=== PATIENT | female | born 1975 | race Caucasian/White ===

== ENCOUNTER → 2018-11-11 | Outpatient (CLI) | payer SELFPAY ==
[~2018-11-11] MED LIST: AMOX500C PO; BUPR100T3; BUPR150T5; CITA10TA5; CLON0.2T PO; MINI1CAP PO; MUPI2OI EXT; NAPR-50 PO; PRAZ1CAP; TOPA1TAB PO; TOPI50TA9; ZOFR4TAB14 PO
== END ==
LOC: M OUTALCOH 08:48
PROVIDERS: ATTEND Psychiatry & Neurology Psychiatry
DX: F14.20 Cocaine dependence, uncomplicated (principal)

== ENCOUNTER 2019-07-28 07:37 | Emergency (ER) | payer MEDICAID, OTHER ==
[~2019-07-28] VITALS: Ht 167.6 cm; Wt 66.3 kg
[2019-07-28 07:37] VITALS: BP 146/69
[~2019-07-28 07:37] MED LIST changes: -BUPR150T5; +BUPR150T5 PO; -NAPR-50 PO; +NAPR-837 PO; -PRAZ1CAP; +PRAZ1CAP PO
[2019-07-28] MEDS ORDERED: ATOM40CA PO (07:49)
[2019-07-28] MEDS ORDERED: LAMI25TA PO ×2 (07:49)
[2019-07-28] MEDS ORDERED: LEVO0.5S15 OD (08:45)
== END 2019-07-28 08:50 | disposition home or self-care (01) ==
LOC: M ED 07:37
DX: H10.9 Unspecified conjunctivitis (principal); Z97.0 Presence of artificial eye; F43.10 Post-traumatic stress disorder, unspecified; F17.200 Nicotine dependence, unspecified, uncomplicated; Z87.898 Personal history of other specified conditions; Z90.49 Acquired absence of other specified parts of digestive tract; Z91.010 Allergy to peanuts; Z88.8 Allergy status to other drugs, medicaments and biological substances

== ENCOUNTER 2019-08-05 13:47 | Emergency (ER) | payer MEDICAID, OTHER ==
[~2019-08-05] VITALS: Ht 167.6 cm; Wt 68.0 kg
[~2019-08-05 13:47] MED LIST changes: +ATOM40CA PO; +LAMI25TA PO; +LEVO0.5S15 OD
[2019-08-05] MEDS ORDERED: LAMI25TA PO (14:42)
[2019-08-05 15:54] LABS: BASO % 0.2 % (0.0-1.0); EOS # 0.3 10^3/uL (0.0-0.5); EOS % 4.9 % (0.0-3.0); HEMATOCRIT 40.5 % (36.0-47.0); HEMOGLOBIN 13.6 g/dl (12.0-15.5); LYMPH # 0.8 10^3/uL (1.5-5.0); MEAN CORPUSCULAR HEMOGLOBIN 30.8 pg (27.0-33.0); MEAN CORPUSCULAR HGB CONC 33.6 g/dl (32.0-36.5); MEAN CORPUSCULAR VOLUME 91.6 fl (80.0-96.0); MONO # 0.4 10^3/uL (0.0-0.8); MONO % 7.1 % (0.0-5.0); NEUTROPHILS % 73.3 % (36.0-66.0); PLATELET COUNT, AUTOMATED 253 10^3/uL (150-450); RED BLOOD COUNT 4.42 10^6/uL (4.00-5.40); WHITE BLOOD COUNT 5.5 10^3/uL (4.0-10.0)
[2019-08-05 16:17] LABS: BLOOD UREA NITROGEN 12 MG/DL (7-18); CALCIUM LEVEL 8.9 MG/DL (8.5-10.1); CARBON DIOXIDE LEVEL 32 MEQ/L (21-32); CHLORIDE LEVEL 106 MEQ/L (98-107); CREATININE FOR GFR 0.82 MG/DL (0.55-1.30); GLOMERULAR FILTRATION RATE > 60.0 (>58); GLUCOSE, FASTING 91 MG/DL (70-100); RHEUMATOID FACTOR QUANT < 10.0 IU/ML (<15.0); SODIUM LEVEL 142 MEQ/L (136-145)
[2019-08-05 16:28] LABS: ERYTHROCYTE SEDIMENTATION RATE 54 mm/hr (0-20)
[2019-08-05] MEDS ORDERED: INDO50CA91 PO (16:56)
[2019-08-05] MEDS ORDERED: FLAG500T PO (16:56)
[2019-08-05 17:07] VITALS: BP 130/69
[2019-08-05 17:38] LABS: CHLAMYDIA DNA AMPLIFICATION NEGATIVE (NEGATIVE); GC DNA AMPLIFICATION NEGATIVE (NEGATIVE)
[2019-08-09 00:06] LABS: ANTI DOUBLE STRAND-DNA AB 1 IU/mL (0-9); ANTINUCLEAR ANTIBODIES DIRECT Positive (Negative); RNP ANTIBODIES 3.2 AI (0.0-0.9); SJOGREN'S ANTI SS-A <0.2 AI (0.0-0.9); SJOGREN'S ANTI SS-B <0.2 AI (0.0-0.9); SMITH ANTIBODIES >8.0 AI (0.0-0.9)
== END 2019-08-05 17:10 | disposition home or self-care (01) ==
LOC: M ED 13:47
DX: R21 Rash and other nonspecific skin eruption (principal); N76.0 Acute vaginitis; M25.50 Pain in unspecified joint; F17.200 Nicotine dependence, unspecified, uncomplicated; Z91.010 Allergy to peanuts; Z88.5 Allergy status to narcotic agent

== ENCOUNTER 2021-04-04 18:15 | Emergency (ER) | payer MEDICAID ==
[~2021-04-04] VITALS: Ht 165.1 cm; Wt 72.7 kg
[~2021-04-04 18:15] MED LIST changes: -ATOM40CA PO; +ATOM40CA16 PO; +FLAG500T PO; +INDO50CA91 PO; -LEVO0.5S15 OD; +LEVO0.5S16 OD
[2021-04-04 18:16] VITALS: BP 119/56
== END 2021-04-04 21:44 | disposition left against medical advice (07) ==
LOC: M ED 18:15
DX: Z53.21 Procedure and treatment not carried out due to patient leaving prior to being seen by health care provider (principal)

== ENCOUNTER 2021-08-09 12:06 | Emergency (ER) | payer MEDICAID ==
[~2021-08-09] VITALS: Ht 167.6 cm; Wt 68.9 kg
[2021-08-09 12:15] VITALS: BP 119/71
--- OUTSIDE RECORDS SUMMARY | 2021-08-09 12:18 | CCD ---
Author Author [facility] Organization [facility] Address Unknown Phone Unavailable Care Team Providers Care Nurse Staff Industrial Name Role Phone Paulina Banerjee MD Unavailable Unavailable Paulina Banerjee MD Unavailable Unavailable Paulina Banerjee MD Unavailable Unavailable Paulina Banerjee MD Unavailable Unavailable Paulina Banerjee MD Unavailable Unavailable Paulina Banerjee MD Unavailable Unavailable Paulina Banerjee MD Unavailable Unavailable Paulina Banerjee MD Unavailable Unavailable Paulina Banerjee MD Unavailable Unavailable Paulina Banerjee MD Unavailable Unavailable Paulina Banerjee MD Unavailable Unavailable Paulina Banerjee MD Unavailable Unavailable Paulina Banerjee MD Unavailable Unavailable Paulnia Banerjee MD Unavailable Unavailable Paulina Banerjee MD Unavailable Unavailable Paulina Banerjee MD Unavailable Unavailable Paulina Banerjee MD Unavailable Unavailable Paulina Banerjee MD Unavailable Unavailable Paulina Banerjee MD Unavailable Unavailable Paulina Banerjee MD Unavailable Unavailable Paulina Banerjee MD Unavailable Unavailable Paulina Banerjee MD Unavailable Unavailable Paulina Banerjee MD Unavailable Unavailable Paulina Banerjee MD Unavailable Unavailable Paulina Banerjee MD Unavailable Unavailable Paulina Banerjee MD Unavailable Unavailable Paulina Banerjee MD Unavailable Unavailable Paulina Banerjee MD Unavailable Unavailable Paulina Banerjee MD Unavailable Unavailable Paulina Banerjee MD Unavailable Unavailable Paulina Banerjee MD Unavailable Unavailable Paulina Banerjee MD Unavailable Unavailable Paulina Banerjee MD Unavailable Unavailable Paulina Banerjee MD Unavailable Unavailable Paulina Banerjee MD Unavailable Unavailable Paulina Banerjee MD Unavailable Unavailable Paulina Banerjee MD Unavailable Unavailable Paulina Banerjee MD Unavailable Unavailable Paulina Banerjee MD Unavailable Unavailable Paulina Banerjee MD Unavailable Unavailable Paulina Banerjee MD Unavailable Unavailable Paulina Banerjee MD Unavailable Unavailable Paulina Banerjee MD Unavailable Unavailable Paulina Banerjee MD Unavailable Unavailable Paulina Banerjee MD Unavailable Unavailable Paulina Banerjee MD Unavailable Unavailable Paulina Banerjee MD Unavailable Unavailable Paulina Banerjee MD Unavailable Unavailable Paulina Banerjee MD Unavailable Unavailable Paulina Banerjee MD Unavailable Unavailable Paulina Banerjee MD Unavailable Unavailable Paulina Banerjee MD Unavailable Unavailable Paulina Banerjee MD Unavailable Unavailable Paulina Banerjee MD Unavailable Unavailable Paulina Banerjee MD Unavailable Unavailable Paulina Banerjee MD Unavailable Unavailable Paulina Banerjee MD Unavailable Unavailable Paulina Banerjee MD Unavailable Unavailable Paulina Banerjee MD Unavailable Unavailable Paulina Banerjee MD Unavailable Unavailable Paulina Banerjee MD Unavailable Unavailable Paulina Banerjee MD Unavailable Unavailable Paulina Banerjee MD Unavailable Unavailable Paulina Banerjee MD Unavailable Unavailable Paulina Banerjee MD Unavailable Unavailable Paulina Banerjee MD Unavailable Unavailable Paulina Banerjee MD Unavailable Unavailable Paulina Banerjee MD Unavailable Unavailable Paulina Banerjee MD Unavailable Unavailable Paulina Banerjee MD Unavailable Unavailable Paulina Banerjee MD Unavailable Unavailable Paulina Banerjee MD Unavailable Unavailable Paulina Banerjee MD Unavailable Unavailable Paulina Banerjee MD Unavailable Unavailable Paulina Banerjee MD Unavailable Unavailable Paulina Banerjee MD Unavailable Unavailable Paulina Banerjee MD Unavailable Unavailable Paulina Banerjee MD Unavailable Unavailable Paulina Banerjee MD Unavailable Unavailable Paulina Banerjee MD Unavailable Unavailable Paulina Banerjee MD Unavailable Unavailable Paulina Banerjee MD Unavailable Unavailable Paulina Banerjee MD Unavailable Unavailable Paulina Banerjee MD Unavailable Unavailable Paulina Banerjee MD Unavailable Unavailable Paulina Banerjee MD Unavailable Unavailable Paulina Banerjee MD Unavailable Unavailable Paulina Banerjee MD Unavailable Unavailable Paulina Banerjee MD Unavailable Unavailable Paulina Banerjee MD Unavailable Unavailable Paulina Banerjee MD Unavailable Unavailable Paulina Banerjee MD Unavailable Unavailable Paulina Banerjee MD Unavailable Unavailable Re-disclosure Warning The records that you are about to access may contain information from federally-assisted alcohol or drug abuse programs. If such information is present, then the following federally mandated warning applies: This information has been disclosed to you from records protected by federal confidentiality rules (42 CFR part 2). The federal rules prohibit you from making any further disclosure of this information unless further disclosure is expressly permitted by the written consent of the person to whom it pertains or as otherwise permitted by 42 CFR part 2. A general authorization for the release of medical or other information is NOT sufficient for this purpose. The Federal rules restrict any use of the information to criminally investigate or prosecute any alcohol or drug abuse patient.The records that you are about to access may contain highly sensitive health information, the redisclosure of which is protected by Article 27-F of the [facility] Public Health law. If you continue you may have access to information: Regarding HIV / AIDS; Provided by facilities licensed or operated by the [facility] Office of Mental Health; or Provided by the [facility] Office for People With Developmental Disabilities. If such information is present, then the following [facility] mandated warning applies: This information has been disclosed to you from confidential records which are protected by state law. State law prohibits you from making any further disclosure of this information without the specific written consent of the person to whom it pertains, or as otherwise permitted by law. Any unauthorized further disclosure in violation of state law may result in a fine or residential sentence or both. A general authorization for the release of medical or other information is NOT sufficient authorization for further disc losure. Family History Family Member Name Family Member Gender Family Member Status Date o f Status Description Data Source(s) Unknown Unknown Problem [facility] ([facility]) Encounters Encounter Providers Location Date Indications Data Source(s ) Kashmir Banerjee MD: [address] [place] [address] [phone], Ph. Attender: Kashmir Banerjee MD [facility] Medical 05/02/2021 12:00:00 AM EDT [place] ([facility]) Outpatient [address] [place] [address] Satellite Unit 10/10/2019 12:00:00 AM EST MHARS ([facility] [place]) Patient admitted. Immunizations Vaccine Date Status Description Data Source(s) COVID-19, mRNA, LNP-S, PF, 100 mcg/0.5 mL dose 05/02/2021 09 :57:21 AM EDT completed 10.5 mL [place] ([facility]) COVID-19 VACCINE Moderna 05/02/2021 12:00:00 AM EDT completed NYSIIS Vaccine Series Complete: NOThis Data was Submitted to [facility] Via [employer]. Medications No Information Insurance Providers Payer name Policy type / Coverage type Policy ID Covered libertarian ID Covered libertarian's relationship to fields Policy Fields Plan Information MEDICAID MISSING/PENDING MISSING Patient MISSING MEDICAID [id number] Patient [id number] [facility] MEDICAID [id number] SP [id number] UNHC COMMUNITY PLAN MCDHMO [id number] SP [id number] MEDICAID [id number] SP [id number] UNHC COMMUNITY PLAN MCDHMO [id number] SP [id number] Managed Care - Community Plan United Healthcare P [id number] S [id number] Medicaid S [id number] S [id number] Managed Care - Community Plan United Healthcare P [id number] S [id number] Managed Care - Community Plan United Healthcare P [id number] S [id number] Managed Care - [facility] Community Plan P [id number] S [id number] Managed Care - Community Plan United Healthcare P [id number] S [id number] Medicaid S [id number] S [id number] Managed Care - Community Plan United Healthcare P UNAVAILABLE S UNAVAILABLE UNHC COMMUNITY PLAN MCDHMO [id number] SP [id number] MEDICAID [id number] SP [id number] Medicaid P [id number] S [id number] [place] DIRECTOR RADIO DEPT [id number] SP [id number] [place] LEGAL TECHNICIAN DEP [id number] SP [id number] VOUCHER BILLING [id number] Patient [id number] [facility] [id number] PT [id number] VOUCHER BILLING [id number] NR CHN2 6917 [facility] FPC UNAVAILABLE UN AVAILABLE VOUCHER BILLING [id number] PT [id number] [facility] LEGAL TECHNICIAN DEP UNAVAILABLE SP UNAVAILABLE PGBA [facility] [id number] HU[id number] [facility] FPC [facility] SELF PAY UNAVAILABLE SP UNAVAILA BLE DEPT OF [place] COMM SUPER [id number] SELF [id number] [facility](MCAID) O [id number] S [id number] Managed Care - Community Plan [facility] P [id number] S [id number] [facility]([place]CAID) O [id number] S [id number] [facility] Health Maintenance Organization ([facility]) 6 [id number] Family Dependent 6 [id number] [facility] Health Maintenance Organization ([facility]) 6 [id number] Family Dependent 6 [id number] [facility] Health Maintenance Organization ([facility]) [id number] Self 1 [id number] [facility] COMMUNITY PLAN [facility] [id number] SP [id number] [facility] Health Maintenance Organization ([facility]) 6 [id number] Family Dependent 6 [id number] [facility] Health Maintenance Organization ([facility]) 6 [id number] Family Dependent 6 [id number] [facility] Health Maintenance Organization ([facility]) [id number] Self 1 [id number] Problems, Conditions, and Diagnoses Code Display Name Description Problem Type Effective Dates Data Source(s) 06821862 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
--- OUTSIDE RECORDS SUMMARY | 2021-08-09 14:36 | CCD ---
Author Author [facility] Organization [facility] Address Unknown Phone Unavailable Care Team Providers Care Senior Data Modeler Name Role Phone Paulina Banerjee MD Unavailable [...] Unavailable Unavailable Paulina Banerjee MD Unavailable Unavailable Pualina Banerjee MD Unavailable Unavailable Paulina Banerjee MD [...] is protected by Article 27-F of the [facility] Public Health law. If you continue you may have access to information: Regarding HIV / AIDS; Provided by facilities licensed or operated by the [facility] Office of Mental Health; or Provided by the [facility] Office for People With Developmental Disabilities. If such information is present, then the following [facility] mandated warning applies: This information has been [...] law may result in a fine or group home sentence or both. A general authorization for the release of medical or other information is NOT sufficient authorization for further disc losure. Family History Family Member Name Family Member Gender Family Member Status Date o f Status Description Data Source(s) Unknown Unknown Problem [facility] ([facility]) Encounters Encounter Providers Location Date Indications Data Source(s ) Kashmir Banerjee MD: [address] [place] [address] [phone], Ph. Attender: Kashmir Banerjee MD [facility] Medical 05/02/2021 12:00:00 AM EDT WILMAN ([facility]) Outpatient [address] [place] [address] Satellite Unit 10/10/2019 12:00:00 AM EST MHARS ([facility]) Patient admitted. Immunizations Vaccine Date Status Description Data Source(s) COVID-19, mRNA, LNP-S, PF, 100 mcg/0.5 mL dose 05/02/2021 09 :57:21 AM EDT completed 10.5 mL WILMAN ([facility]) COVID-19 VACCINE Moderna 05/02/2021 12:00:00 AM EDT completed NYSIIS Vaccine Series Complete: NOThis Data was Submitted to [facility] Via [employer]. Medications No Information Insurance Providers Payer name Policy type / Coverage type Policy ID Covered green party ID Covered green party's relationship to fields Policy Fields Plan Information MEDICAID MISSING/PENDING MISSING Patient MISSING MEDICAID [id number] Patient [id number] [facility] MEDICAID [id number] SP [id number] UNHC COMMUNITY PLAN MCDHMO [id number] SP [id number] MEDICAID [id number] SP [id number] UNHC COMMUNITY PLAN MCDHMO [id number] SP [id number] Managed Care - Community Plan United Healthcare P [id number] S [id number] Medicaid S [id number] S [id number] Managed Care - Community Plan United Healthcare P [id number] S [id number] Managed Care - Community Plan United Healthcare P [id number] S [id number] Managed Care - [facility] Community Plan P [id number] S [id number] Managed Care - Community Plan United Healthcare P [id number] S [id number] Medicaid S [id number] S [id number] Managed Care - Community Plan United Healthcare P UNAVAILABLE S UNAVAILABLE UNHC COMMUNITY PLAN MCDHMO [id number] SP [id number] MEDICAID [id number] SP [id number] Medicaid P [id number] S [id number] [place] TELEVISION SPECIALIST DEPT [id number] SP [id number] [place] 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 [id number] PT [id number] VOUCHER BILLING [id number] NR CHN2 6917 [facility] MCFP UNAVAILABLE UN AVAILABLE VOUCHER BILLING [id number] PT CHN2 [id number] [facility] CONTRACT PROJECT MANAGER DEP UNAVAILABLE SP UNAVAILABLE PGBA [facility] [id number] HU2 [id number] [facility] MCFP [facility] MCFP SELF PAY UNAVAILABLE SP UNAVAILA BLE DEPT OF [place] COMM SUPER [id number] SELF [id number] [facility](MCAID) O [id number] S [id number] Managed Care - Community Plan [facility] P [id number] S [id number] [facility]([place]CAID) O [id number] S [id number] [facility] Health Maintenance Organization [facility] 6 [id number] Family Dependent 6 [id number] [facility] Health Maintenance Organization ([facility] 6 [id number] Family Dependent 6 [id number] [facility] Health Maintenance Organization ([facility] [id number] Self 1 [id number] [facility] [id number] SP [id number] [facility] Health Maintenance Organization ([facility] 6 [id number] Family Dependent 6 [id number] [facility] Health Maintenance Organization ([facility] 6 [id number] Family Dependent 6 [id number] [facility] Health Maintenance Organization ([facility]) [id number] Self 1 [id number] Problems, Conditions, and Diagnoses Code Display Name Description Problem Type Effective Dates Data Source(s) [id number] 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
== END 2021-08-09 14:10 | disposition left against medical advice (07) ==
LOC: M ED 12:06
DX: Z53.21 Procedure and treatment not carried out due to patient leaving prior to being seen by health care provider (principal)

== ENCOUNTER 2021-08-10 10:12 | Emergency (ER) | payer MEDICAID ==
[~2021-08-10] VITALS: Ht 167.6 cm; Wt 68.2 kg
[2021-08-10 10:12] VITALS: BP 93/70
--- OUTSIDE RECORDS SUMMARY | 2021-08-10 10:18 | CCD ---
Author Author [facility] Organization [facility] Address Unknown Phone Unavailable Care Team Providers Care Senior Java Ui Developer Name Role Phone Paulina Banerjee MD Unavailable Unavailable Paulina Banerjee MD Unavailable Unavailable Paulina Banerjee MD Unavailable Unavailable Paulina Banerjee MD Unavailable Unavailable Paulina Banerjee MD Unavailable Unavailable Paulina Banerjee MD Unavailable Unavailable Paulina Banerjee MD Unavailable Unavailable Paulina Banerjee MD Unavailable Unavailable Paulina Banerjee MD Unavailable Unavailable Paulina Banerjee MD Unavailable Unavailable Paulina Banerjee MD Unavailable Unavailable Paulina Banerjee MD Unavailable Unavailable Paluina Banerjee MD Unavailable Unavailable Paulina Banerjee MD [...] Unavailable Unavailable Paulina Banerjee MD Unavailable Unavailable Paulian Banerjee MD Unavailable Unavailable Paulina Banerjee MD [...] is protected by Article 27-F of the [facility] Public Health law. If you continue you may have access to information: Regarding HIV / AIDS; Provided by facilities licensed or operated by the [facility] Office of Mental Health; or Provided by the [facility] Office for People With Developmental Disabilities. If such information is present, then the following [facility] mandated warning applies: This information has [...] law may result in a fine or fdc sentence or both. A general authorization for the release of medical or other information is NOT sufficient authorization for further disc losure. Family History Family Member Name Family Member Gender Family Member Status Date o f Status Description Data Source(s) Unknown Unknown Problem [facility]ENT ([facility]) Encounters Encounter Providers Location Date Indications Data Source(s ) Kashmir Banerjee MD: [address] [place] [address] [phone], Ph. Attender: Kashmir Banerjee MD [facility] Medical 05/02/2021 12:00:00 AM EDT WILMAN ([facility]) Outpatient [address] [place] [address] Satellite Unit 10/10/2019 12:00:00 AM EST MHARS ([facility] [place]) Patient admitted. Immunizations Vaccine Date Status Description Data Source(s) COVID-19, mRNA, LNP-S, PF, 100 mcg/0.5 mL dose 05/02/2021 09 :57:21 AM EDT completed 10.5 mL WILMAN ([facility]) COVID-19 VACCINE Moderna 05/02/2021 12:00:00 AM EDT completed NYSIIS Vaccine Series Complete: NOThis Data was Submitted to [facility] Via [employer]. Medications No Information Insurance Providers Payer name Policy type / Coverage type Policy ID Covered constitution party ID Covered constitution party's relationship to fields Policy Fields Plan Information MEDICAID MISSING/PENDING MISSING Patient MISSING MEDICAID [id number] Patient [id number] [facility] MEDICAID [id number] SP [id number] UNHC COMMUNITY PLAN MCDHMO [id number] SP [id number] MEDICAID [id number] SP [id number] UNHC COMMUNITY PLAN MCDHMO [id number] SP [id number] Managed Care - Community Plan United Healthcare P [id number] S [id number] Medicaid S [id number] S [id number] Managed Care - Community Plan United Healthcare P [id number] S [id number] Managed Care - Community Plan United Healthcare P [id number] S [id number] Managed Care - [facility] Community Plan P [id number] S [id number] Managed Care - Community Plan United Healthcare P [id number] S [id number] Medicaid S [id number] S [id number] Managed Care - Community Plan United Healthcare P UNAVAILABLE S UNAVAILABLE UNHC COMMUNITY PLAN MCDHMO [id number] SP [id number] MEDICAID [id number] SP [id number] Medicaid P [id number] S [id number] [place] 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 [id number] SP [id number] [place] 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 [id number] SP [id number] VOUCHER BILLING [id number] Patient [id number] [id number] [facility] [id number] PT [id number] VOUCHER BILLING [id number] NR CHN2 6917 [facility] MCC UNAVAILABLE UN AVAILABLE VOUCHER BILLING [id number] PT CHN2 [facility]17 [facility] 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 UNAVAILABLE SP UNAVAILABLE PGBA [facility] [id number] HU2 [id number] [facility] SELF PAY UNAVAILABLE SP UNAVAILA BLE DEPT OF [place] COMM SUPER [id number] [id number] [id number] [facility]) O [id number] S [id number] Managed Care - Community Plan [facility] P [id number] S [id number] [facility]) O [id number] S [id number] [facility] Health Maintenance Organization ([facility]) 6 [id number] Family Dependent [id number] [facility] Health Maintenance Organization ([facility]) 6 [id number] Family Dependent 6 [id number] [facility] Health Maintenance Organization ([facility]) [id number] Self 1 [id number] [facility] COMMUNITY PLAN [facility] [id number] SP [id number] [facility] Health Maintenance Organization ([facility]) 6 [id number] Family Dependent [id number] 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
--- OUTSIDE RECORDS SUMMARY | 2021-08-10 11:26 | CCD ---
Author Author [facility] Organization [facility] Address Unknown Phone Unavailable Care Team Providers Care Eyelet Maker Name Role Phone Paulina Banerjee MD Unavailable [...] is protected by Article 27-F of the [facility] Public Health law. If you continue you may have access to information: Regarding HIV / AIDS; Provided by facilities licensed or operated by the [facility] Office of Mental Health; or Provided by the [facility] Office for People With Developmental Disabilities. If such information is present, then the following [facility] mandated warning applies: This information has [...] law may result in a fine or nursing home sentence or both. A general authorization for the release of medical or other information is NOT sufficient authorization for further disc losure. Family History Family Member Name Family Member Gender Family Member Status Date o f Status Description Data Source(s) Unknown Unknown Problem [facility] ([facility]) Encounters Encounter Providers Location Date Indications Data Source(s ) Kashmir Banerjee MD: [address] [place] [address] [id number], Ph. Attender: Kashmir Banerjee MD [facility] Medical 05/02/2021 12:00:00 AM EDT [facility] ([facility]) Outpatient [address] [place] [address] [facility] 10/10/2019 12:00:00 AM EST [facility] ([facility]) Patient admitted. Immunizations Vaccine Date Status Description Data Source(s) COVID-19, mRNA, LNP-S, PF, 100 mcg/0.5 mL dose 05/02/2021 09 :57:21 AM EDT completed 10.5 mL [facility] ([facility]) COVID-19 VACCINE Moderna 05/02/2021 12:00:00 AM EDT completed [facility] Vaccine Series Complete: NOThis Data was Submitted to [facility] Via [employer]. Medications No Information Insurance Providers Payer name Policy type / Coverage type Policy ID Covered republican ID Covered republican's relationship to fields Policy Fields Plan Information MEDICAID MISSING/PENDING MISSING Patient MISSING MEDICAID [id number] Patient [id number] [place] [id number] UNHC COMMUNITY PLAN MCDHMO [id number] SP [id number] MEDICAID [id number] SP [id number] UNHC COMMUNITY PLAN MCDHMO [id number] SP [id number] Managed Care - Community Plan United Healthcare P [id number] S [id number] Medicaid S [id number] S [id number] Managed Care - Community Plan United Healthcare P [id number] S [id number] Managed Care - Community Plan United Healthcare P [id number] S [id number] Managed Care - [facility] Community Plan P [id number] S [id number] Managed Care - Community Plan United Healthcare P [id number] S [id number] Medicaid S [id number] S [id number] Managed Care - Community Plan United Healthcare P UNAVAILABLE S UNAVAILABLE UNHC COMMUNITY PLAN MCDHMO [id number] SP [id number] MEDICAID [id number] SP [id number] Medicaid P [id number] S [id number] 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 [id number] PT [id number] VOUCHER BILLING [id number] NR [id number] [facility] LONG-TERM UNAVAILABLE UN AVAILABLE VOUCHER BILLING [id number] PT [id number] [facility] CUSHION MAT MAKER DEP UNAVAILABLE SP UNAVAILABLE [facility] [id number] [facility] [id number] [facility] LONG-TERM [facility] LONG-TERM SELF PAY UNAVAILABLE SP UNAVAILA BLE DEPT OF [place] COMM SUPER [id number] [facility] O [id number] S [id number] Managed Care - Community Plan [facility] P [id number] S [id number] [facility]) O [id number] S [id number] [facility] Health Maintenance Organization ([facility] 6 [id number] Family Dependent 6 [id number] [facility] Health Maintenance Organization ([facility] [id number] Family Dependent 6 [id number] [facility] Health Maintenance Organization ([facility] [id number] Self 1 [id number] [facility] COMMUNITY PL[facility] [id number] SP [id number] [facility] Health Maintenance Organization ([facility] [id number] Family Dependent 6 [id number] [facility] Health Maintenance Organization ([facility] 6 [id number] Family Dependent 6 [id number] [facility] Health Maintenance Organization ([facility] [id number] Self 1 [id number] Problems, Conditions, and Diagnoses Code Display Name Description Problem Type Effective Dates Data Source(s) 08692087 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
[2021-08-10 12:09] LABS: HCG, SERUM QUALITATIVE NEGATIVE (NEGATIVE)
[2021-08-10] MEDS ORDERED: cefTRIAXone 500MG VIAL (J0696 PER 250MG) IM ONE (12:10)
[2021-08-10] MEDS ORDERED: BICILLIN L-A 2,400,000 UNIT/4 ML SYRINGE (PENICILLIN G BENZATINE) IM ONE (12:10)
[2021-08-10] MEDS ORDERED: LIDOCAINE 1% SDV 5ML VIAL DILUENT ONE (12:10)
[2021-08-10 13:06] LABS: GC DNA AMPLIFICATION POSITIVE (NEGATIVE)
== END 2021-08-10 13:04 | disposition home or self-care (01) ==
LOC: M ED 10:12
DX: Z20.2 Contact with and (suspected) exposure to infections with a predominantly sexual mode of transmission (principal); F43.10 Post-traumatic stress disorder, unspecified; F90.9 Attention-deficit hyperactivity disorder, unspecified type; Z79.899 Other long term (current) drug therapy; Z88.5 Allergy status to narcotic agent; Z91.010 Allergy to peanuts; F17.210 Nicotine dependence, cigarettes, uncomplicated
CPT/HCPCS: 36415; 84703; 86780; 87661; 96372; 99282; J0561; J0696

== ENCOUNTER → 2024-11-18 | Outpatient (CLI) | payer MEDICAID, SELFPAY ==
[~2024-11-18] MED LIST changes: +BUPR-70; +BUPR-71 PO; -BUPR100T3; -BUPR150T5 PO; -CITA10TA5; +CITA10TA7; +E-Z-GAS II EFFERVESCENT PACKET (SODIUM BICARB./CITRIC ACID/SIMETHICONE) As Ordered ONE; +E-Z-HD 98% w/w 340GM SUSP BTL As Ordered ONE; +E-Z-PAQUE 96% w/w SUSP 176GM BTL As Ordered ONE; +TOPI-21; -TOPI50TA9
== END ==
LOC: M RAD 08:17
PROVIDERS: ATTEND Internal Medicine Addiction Medicine
DX: R13.10 Dysphagia, unspecified (principal); Z87.891 Personal history of nicotine dependence

== ENCOUNTER → 2024-11-25 | Outpatient (CLI) | payer OTHER ==
[~2024-11-25] MED LIST changes: -E-Z-GAS II EFFERVESCENT PACKET (SODIUM BICARB./CITRIC ACID/SIMETHICONE) As Ordered ONE; -E-Z-HD 98% w/w 340GM SUSP BTL As Ordered ONE; -E-Z-PAQUE 96% w/w SUSP 176GM BTL As Ordered ONE
== END ==
LOC: M RAD 12:49
PROVIDERS: ATTEND Internal Medicine Addiction Medicine
DX: M79.661 Pain in right lower leg (principal); R60.0 Localized edema

== ENCOUNTER → 2025-01-25 | Outpatient (REF) | payer OTHER | LOC: M LAB REF 16:25 | PROVIDERS: ATTEND Surgery | DX: D17.1 Benign lipomatous neoplasm of skin and subcutaneous tissue of trunk (principal) ==